=== PATIENT | female | born 1970 | race Two or more races ===

== ENCOUNTER 2017-08-23 12:12 | Emergency (ER) | payer OTHER ==
[~2017-08-23] VITALS: Ht 170.2 cm; Wt 106.6 kg
[2017-08-23 12:42] VITALS: BP 179/81
[2017-08-23] MEDS ORDERED: KETOROLAC TROMETH 60MG/2ML VIAL IM ONE ×2 (14:06→14:15)
== END 2017-08-23 15:20 | disposition home or self-care (01) ==
LOC: ER 12:12
DX: S16.1XXA Strain of muscle, fascia and tendon at neck level, initial encounter (principal); F41.1 Generalized anxiety disorder; X58.XXXA Exposure to other specified factors, initial encounter; Y93.89 Activity, other specified; Y92.89 Other specified places as the place of occurrence of the external cause; Y99.8 Other external cause status
CPT/HCPCS: 96372; 99283; J1885